=== PATIENT | female | born 1995 | race Caucasian/White ===

== ENCOUNTER 2017-03-04 09:41 | Outpatient (CLI) | payer OTHER ==
[~2017-03-04] VITALS: Ht 170.2 cm; Wt 109.1 kg
[~2017-03-04 09:41] MED LIST: ADDERALL20 MG PO; BYSTOLIC5 MG PO; PROTONIX20 MG PO
[2017-03-04 09:54] VITALS: BP 127/58; PULSE 79; TEMP 98.2
[2017-03-04] MEDS ORDERED: PRENATAL MVI PO (10:01)
[2017-03-04 10:30] VITALS: BP 125/62; PULSE 79
[2017-03-04 10:59] LABS: BASO % 0.1 % (0.0-2.0); EOS # 0.1 (0.0-0.7); EOS % 0.5 % (0-4.0); GRAN # 8.6 (1.4-6.5); GRAN % 78.6 % (42.2-75.2); HEMOGLOBIN 12.1 g/dl (12.5-16.0); LYMPH # 1.5 (1.2-3.4); LYMPH % 14.1 % (20.0-51.0); MEAN CELL VOLUME 89 fl (80.0-100.0); MEAN CORPUSCULAR HEMOGLOBIN 30 pg (27.0-31.0); MEAN CORPUSCULAR HGB CONC 34 g/dl (33.0-37.0); MEAN PLATELET VOLUME 12.6 fl (7.4-10.4); MONO # 0.7 (0.1-0.6); MONO % 6.2 % (1.7-9.3); PLATELET COUNT 139 K/mm3 (130-400); REDCELL DISTRIBUTION WIDTH-CV 13.9 % (11.5-14.5); WHITE BLOOD COUNT 10.9 K/mm3 (4.8-10.8)
[2017-03-04 11:04] LABS: HEMATOCRIT 35.6 % (37.0-47.0)
[2017-03-04 11:05] LABS: PH 7 (5-8); URINE APPEARANCE Clear; URINE BILIRUBIN Negative (NEGATIVE); URINE BLOOD 1+ (NEGATIVE); URINE COLOR Yellow; URINE GLUCOSE Negative (NEGATIVE); URINE KETONE Negative (NEGATIVE); URINE UROBILINOGEN Negative (NEGATIVE)
[2017-03-04 11:13] LABS: ADJUSTED CALCIUM 9.5 mg/dL (8.4-10.2); ALBUMIN 3.1 gm/dL (3.5-5.0); BILIRUBIN,TOTAL 0.9 mg/dL (0.0-1.0); CALCIUM 8.8 mg/dL (8.4-10.2); CREATININE, serum 0.51 mg/dL (0.52-1.25); POTASSIUM 3.7 mmol/L (3.4-5.0); TOTAL PROTEIN 6.1 gm/dL (6.4-8.2)
[2017-03-04 11:26] LABS: SQUAMOUS EPITHELIAL 0-2 /hpf; URINE RBC 0-2 /hpf; URINE WBC 0-2 /hpf
[2017-03-04 11:30] VITALS: BP 124/65; PULSE 72
== END 2017-03-04 11:33 | disposition home or self-care (01) ==
LOC: LDRO 09:41
PROVIDERS: Obstetrics & Gynecology
DX: O26.893 Other specified pregnancy related conditions, third trimester (principal); R42 Dizziness and giddiness; Z3A.37 37 weeks gestation of pregnancy

== ENCOUNTER 2017-03-14 01:06 | Outpatient (CLI) | payer OTHER ==
[~2017-03-14] VITALS: Ht 170.2 cm; Wt 109.1 kg
[~2017-03-14 01:06] MED LIST changes: +PRENATAL MVI PO
[2017-03-14 01:22] VITALS: BP 141/86; PULSE 107; TEMP 98.3
[2017-03-14] MEDS ORDERED: PRENATAL LOW IR1 TA1 PO (01:31)
[2017-03-14 01:40] VITALS: BP 141/86; PULSE 112; TEMP 98.3
[2017-03-14 01:57] VITALS: BP 132/81; PULSE 102
[2017-03-14 03:00] VITALS: BP 135/89; PULSE 110
[2017-03-14 03:30] VITALS: BP 133/86; PULSE 95
[2017-03-14 03:30] LABS: BASO % 0.2 % (0.0-2.0); EOS # 0.1 (0.0-0.7); EOS % 0.5 % (0-4.0); GRAN # 11.9 (1.4-6.5); GRAN % 77.8 % (42.2-75.2); LYMPH # 2.2 (1.2-3.4); LYMPH % 14.4 % (20.0-51.0); MEAN CELL VOLUME 90 fl (80.0-100.0); MEAN CORPUSCULAR HEMOGLOBIN 30 pg (27.0-31.0); MEAN CORPUSCULAR HGB CONC 33 g/dl (33.0-37.0); MEAN PLATELET VOLUME 12.8 fl (7.4-10.4); MONO % 6.6 % (1.7-9.3); PLATELET COUNT 153 K/mm3 (130-400); RED BLOOD COUNT 4.01 M/mm3 (4.10-5.30); REDCELL DISTRIBUTION WIDTH-CV 13.9 % (11.5-14.5); WHITE BLOOD COUNT 15.3 K/mm3 (4.8-10.8)
[2017-03-14 03:33] LABS: HEMATOCRIT 36.1 % (37.0-47.0)
[2017-03-14 03:41] LABS: ADJUSTED CALCIUM 9.7 mg/dL (8.4-10.2); ALBUMIN 3.4 gm/dL (3.5-5.0); BILIRUBIN,TOTAL 0.7 mg/dL (0.0-1.0); CALCIUM 9.2 mg/dL (8.4-10.2); CREATININE, serum 0.56 mg/dL (0.52-1.25); TOTAL PROTEIN 6.5 gm/dL (6.4-8.2)
[2017-03-14 03:41] LABS: PH 6 (5-8); URINE APPEARANCE Hazy; URINE BACTERIA None Seen /hpf; URINE BILIRUBIN Negative (NEGATIVE); URINE BLOOD 1+ (NEGATIVE); URINE COLOR Yellow; URINE GLUCOSE Negative (NEGATIVE); URINE KETONE Negative (NEGATIVE); URINE UROBILINOGEN Negative (NEGATIVE)
[2017-03-14 03:58] VITALS: BP 123/82; PULSE 91
== END 2017-03-14 04:00 | disposition home or self-care (01) ==
LOC: LDRO 01:06
PROVIDERS: Obstetrics & Gynecology
DX: O62.9 Abnormality of forces of labor, unspecified (principal); Z3A.38 38 weeks gestation of pregnancy

== ENCOUNTER 2017-03-15 10:00 | Outpatient (CLI) | payer OTHER ==
[2017-03-15] VITALS (7 sets, daily range): BP systolic 131–142; BP diastolic 87–100; PULSE 82–105; TEMP 98.6
[~2017-03-15] VITALS: Ht 170.2 cm; Wt 109.1 kg
[~2017-03-15 10:00] MED LIST changes: +PRENATAL LOW IR1 TA1 PO
[2017-03-15 10:44] LABS: BASO % 0.2 % (0.0-2.0); EOS # 0.1 (0.0-0.7); EOS % 0.5 % (0-4.0); GRAN # 10.4 (1.4-6.5); GRAN % 80.6 % (42.2-75.2); HEMATOCRIT 37.7 % (37.0-47.0); HEMOGLOBIN 12.7 g/dl (12.5-16.0); LYMPH # 1.6 (1.2-3.4); LYMPH % 12.7 % (20.0-51.0); MEAN CELL VOLUME 90 fl (80.0-100.0); MEAN CORPUSCULAR HEMOGLOBIN 30 pg (27.0-31.0); MEAN CORPUSCULAR HGB CONC 34 g/dl (33.0-37.0); MEAN PLATELET VOLUME 12.5 fl (7.4-10.4); MONO # 0.7 (0.1-0.6); MONO % 5.4 % (1.7-9.3); PLATELET COUNT 154 K/mm3 (130-400); WHITE BLOOD COUNT 12.9 K/mm3 (4.8-10.8)
[2017-03-15 10:46] LABS: ADJUSTED CALCIUM 9.7 mg/dL (8.4-10.2); ALBUMIN 3.4 gm/dL (3.5-5.0); BILIRUBIN,TOTAL 0.8 mg/dL (0.0-1.0); CALCIUM 9.2 mg/dL (8.4-10.2); CREATININE, serum 0.53 mg/dL (0.52-1.25); POTASSIUM 4.1 mmol/L (3.4-5.0); TOTAL PROTEIN 6.7 gm/dL (6.4-8.2)
== END 2017-03-15 12:05 | disposition home or self-care (01) ==
LOC: LDRO → LDR 10:00 → LDRO 10:00 → EDSTATUS 03-24 09:49 → LDR 03-24 09:51 → EDSTATUS 03-24 09:53 → LDRO 03-24 14:55
PROVIDERS: Obstetrics & Gynecology
DX: O62.1 Secondary uterine inertia (principal); Z3A.38 38 weeks gestation of pregnancy

== ENCOUNTER 2017-03-19 08:41 | Inpatient (IN) | payer OTHER ==
[2017-03-19] VITALS (48 sets, daily range): BP systolic 116–159; BP diastolic 57–107; PULSE 82–151; TEMP 97.9–98.7
[~2017-03-19] VITALS: Ht 170.2 cm; Wt 108.2 kg
[2017-03-19] MEDS ORDERED: MOTRIN 800800 MG/TAB PO (10:24)
[2017-03-19] MEDS ORDERED: PERCOCET 325 MG1 TA2 PO (10:24)
[2017-03-19 11:57] LABS: BASO % 0.1 % (0.0-2.0); EOS # 0.1 (0.0-0.7); EOS % 0.5 % (0-4.0); GRAN # 11.3 (1.4-6.5); GRAN % 81.3 % (42.2-75.2); HEMATOCRIT 39.5 % (37.0-47.0); HEMOGLOBIN 13.3 g/dl (12.5-16.0); LYMPH # 1.7 (1.2-3.4); LYMPH % 12.2 % (20.0-51.0); MEAN CELL VOLUME 90 fl (80.0-100.0); MEAN CORPUSCULAR HEMOGLOBIN 30 pg (27.0-31.0); MEAN CORPUSCULAR HGB CONC 34 g/dl (33.0-37.0); MONO # 0.7 (0.1-0.6); MONO % 5.3 % (1.7-9.3); PLATELET COUNT 169 K/mm3 (130-400); RED BLOOD COUNT 4.41 M/mm3 (4.10-5.30); WHITE BLOOD COUNT 13.9 K/mm3 (4.8-10.8)
[2017-03-19 12:17] LABS: ADJUSTED CALCIUM 9.2 mg/dL (8.4-10.2); ALBUMIN 3.6 gm/dL (3.5-5.0); BILIRUBIN,TOTAL 0.8 mg/dL (0.0-1.0); CALCIUM 8.9 mg/dL (8.4-10.2); CREATININE, serum 0.56 mg/dL (0.52-1.25)
[2017-03-19 15:29] LABS: PH 6 (5-8); SQUAMOUS EPITHELIAL 0-2 /hpf; URINE APPEARANCE Clear; URINE BACTERIA None Seen /hpf; URINE BILIRUBIN Negative (NEGATIVE); URINE BLOOD 1+ (NEGATIVE); URINE COLOR Yellow; URINE GLUCOSE Negative (NEGATIVE); URINE KETONE 1+ (NEGATIVE); URINE UROBILINOGEN Negative (NEGATIVE); URINE WBC 0-2 /hpf
[2017-03-20] VITALS (14 sets, daily range): BP systolic 110–145; BP diastolic 61–92; PULSE 69–132; TEMP 97.4–98.8
[2017-03-20 05:04] LABS: HEMATOCRIT 29.5 % (37.0-47.0); HEMOGLOBIN 9.7 g/dl (12.5-16.0)
[2017-03-20 07:10] LABS: HEMATOCRIT 28.1 % (37.0-47.0); HEMOGLOBIN 9.3 g/dl (12.5-16.0)
[2017-03-21 04:15] VITALS: BP 134/67; PULSE 116; TEMP 98.2
[2017-03-21 08:00] VITALS: BP 128/80; BP 144/82; PULSE 120; PULSE 82; TEMP 97.7; TEMP 98.6
== END 2017-03-21 17:27 | disposition home or self-care (01) | DRG 775 ==
LOC: LDRO 08:41 → LDR 09:00 → OB 09:00
PROVIDERS: Obstetrics & Gynecology
PROC: 10E0XZZ Delivery of Products of Conception, External Approach (ICD-10-PCS; principal; 2017-03-19)
PROC: 0UQMXZZ Repair Vulva, External Approach (ICD-10-PCS; 2017-03-19)
DX: O13.3 Gestational [pregnancy-induced] hypertension without significant proteinuria, third trimester (principal); O71.82 Other specified trauma to perineum and vulva; O75.89 Other specified complications of labor and delivery; R33.9 Retention of urine, unspecified; Z3A.39 39 weeks gestation of pregnancy; Z37.0 Single live birth
CPT/HCPCS: J1170; J2210; J2405; J2590; J7120

== ENCOUNTER → 2018-05-09 | Outpatient (CLI) | payer OTHER ==
[~2018-05-09] MED LIST changes: +MOTRIN 800800 MG/TAB PO; +PERCOCET 325 MG1 TA2 PO
== END ==
LOC: COL.RAD 07:19
DX: N20.0 Calculus of kidney (principal)
CPT/HCPCS: Q9967